=== PATIENT | female | born 1955 | race African-American/Black ===

== ENCOUNTER 2016-05-23 23:52 | Outpatient (CLI) | payer MEDICARE ==
[~2016-05-23] VITALS: Ht 167.6 cm; Wt 43.5 kg
[2016-05-23 21:46] LABS: APTT 24.9 SECONDS (22.8-39.4); INR 0.95 (0.85-1.17); PROTIME 12.5 SECONDS (11.6-15.0)
[2016-05-23 21:52] LABS: ALBUMIN 4.4 g/dL (3.4-5.0); ANION GAP 31.4 mmol/L (8-16); BILIRUBIN - TOTAL 0.46 mg/dL (0.2-1.3); CALCIUM 10.1 mg/dL (8.5-10.1); CARBON DIOXIDE 14.6 mmol/L (21.0-32.0); CREATININE - SERUM 1.5 mg/dL (0.6-1.3); PROTEIN - SERUM 10.3 g/dL (6.4-8.2)
[2016-05-23 21:57] LABS: BASOPHILS 0.6 % (0.0-2.0); EOSINOPHILS 0 % (0-7); HEMATOCRIT 40.3 % (36.0-48.0); HEMOGLOBIN 12.4 g/dL (12-16); IMMATURE GRANULOCYTES 0.2 % (0-5); LYMPHOCYTES 29.5 % (15-50); MCH 28.8 pg (26.0-34.0); MCHC 30.8 g/dL (31.0-37.0); MCV 93.5 fL (80.0-100.0); MEAN PLATELET VOLUME 11.9 fL (7.4-10.4); MONOCYTES 5.8 % (2-11); NEUTROPHILS 63.9 % (40-80); RBC 4.31 10x6/uL (4.00-5.40); RDW 13.8 % (11.5-14.5); WBC 8.2 10x3/uL (4.8-10.8)
[2016-05-23 22:00] LABS: PLATELET COUNT 203 10x3/uL (130-400)
[2016-05-23 22:05] LABS: KETONE - SERUM MODERATE mg/dL (NEGATIVE)
[2016-05-23 22:10] LABS: MAGNESIUM - SERUM 2.2 mg/dL (1.8-2.4)
[2016-05-23 23:54] LABS: APPEARANCE CLEAR (CLEAR); BILIRUBIN NEGATIVE (NEGATIVE); COLOR YELLOW (YELLOW); GLUCOSE 1000 mg/dL (NEGATIVE); KETONE LARGE mg/dL (NEGATIVE); LEUKOCYTE ESTERASE NEGATIVE (NEGATIVE); NITRITE NEGATIVE (NEGATIVE); PROTEIN TRACE mg/dL (NEGATIVE); SPECIFIC GRAVITY 1.015 (1.005-1.020); UROBILINOGEN NORMAL (NORMAL)
[2016-05-23 23:55] LABS: BACTERIA NONE SEEN /hpf (NONE SEEN); EPITHELIAL CELLS RARE /hpf (0-5); WHITE CELLS - URINE 0-5 /hpf (0-5)
[2016-05-24] VITALS: BP 104/64
--- NOTE | 2016-05-24 01:10 | NUR ---
RECIEVED REPORT ON PATIENT, AND INFORMED PATIENT WAS IN TRANSIT FROM ER BY RAMON.
--- NOTE | 2016-05-24 01:22 | NUR ---
PATIENT ARRIVED FROM ER VIA [facility] WITH HOSPITAL STAFF AND FAMILY.
[2016-05-24] MEDS ORDERED: LEVOTHYROXINE75 MCG PO (01:24)
[2016-05-24] MEDS ORDERED: GLIPIZIDE10 MG PO (01:24)
[2016-05-24] MEDS ORDERED: GLUCOPHAGE1000 MG PO (01:26)
[2016-05-24] MEDS ORDERED: KEPPRA500 MG PO (01:28)
--- NOTE | 2016-05-24 02:02 | NUR ---
PATIENT O2 TURNED DOWN TO 1.5 DUE TO SPO2 READING 100 ON LEFT THUMB. INCREASED CAP. FILL TIME TO 6SECONDS.
[2016-05-24 02:25] VITALS: BP 104/64; BMI 15.5
--- NOTE | 2016-05-24 02:37 | NUR ---
TOOK PATIENT OFF O2 AFTER TALKING WITH RESPIRATORY THERAPY AND SPO2 WAS 100%
--- NOTE | 2016-05-24 03:17 | NUR ---
FSBG WAS 247, 8UNITS OF HUMULIN 2 GIVEN TO RIGHT ARM
[2016-05-24 04:00] VITALS: BP 95/57
--- NOTE | 2016-05-24 05:07 | NUR ---
FSBG WAS 230, 8UNITS HUMULIN R GIVEN LEFT ARM
--- NOTE | 2016-05-24 07:00 | NUR ---
PT REC'D FROM [facility]. PT RESTING IN BED WITH SISTERS AT BEDSIDE. AAOX4. PIV TO L FOREARM SALINE LOCKED. NO S/SX OF INFECTION. BED LOW, CALL LIGHT IN REACH, DENIES NEEDS. CPOC.
[2016-05-24 08:25] VITALS: BP 105/60
--- NOTE | 2016-05-24 08:47 | NUR ---
PT AOX4 RESP EVEN AND NONLABORED PT DENIES NEEDS AT THIS TIME IV TO LEFT FOREARM PATENT AND INTACT. PT IN FOR DEHYDRATION AND NONCOMPLIANT DM. GIVING FLUIDS IV AND MONITORING FSBS. BED AT LOWEST SETTING CALL LIGHT WITHIN REACH WILL CONTINUE TO MONITOR
[2016-05-24 12:19] VITALS: Ht 167.6 cm; Wt 43.5 kg
--- NOTE | 2016-05-24 12:23 | NUR ---
CURRENT FSBS 107. NO INSULIN ADMINISTERED PER SS. PT RESTING IN BED WITH LUNCH TRAY IN ROOM. FAMILY AT BEDSIDE. BED LOW, CALL LIGHT IN REACH, DENIES NEEDS. CPOC.
[2016-05-24 12:32] VITALS: BP 103/61
--- NOTE | 2016-05-24 16:55 | NUR ---
8 UNITS OF INSULIN ADMINISTERED PER SS. FSBS 248. DINNER TRAY AT BEDSIDE. FAMILY IN ROOM. ORDERS FOR DC OBTAINED. BED LOW, CALL LIGHT IN REACH, DENIES NEEDS. CPOC.
[2016-05-24 17:31] VITALS: BP 106/67; BP 141/101
--- NOTE | 2016-05-24 18:00 | NUR ---
PIV TO L FOREARM DC'D WITH CATHETER INTACT. DRESSING APPLIED. ESCORTED OUT VIA WC. DC PAPERS IN HAND.
== END 2016-05-24 18:02 | disposition home or self-care (01) ==
LOC: OBSVTIME → D.MS 23:52 → D.OPS 23:52 → OBSVTIME 23:52 → D.ER 23:52 → D.MS 05-24 18:02 → D.OPS 05-24 18:02 → D.MS 05-24 18:02
PROVIDERS: Emergency Medicine; Physician Assistant Medical
DX: G45.9 Transient cerebral ischemic attack, unspecified (principal); Z91.14 Patient's other noncompliance with medication regimen; R47.81 Slurred speech; E11.65 Type 2 diabetes mellitus with hyperglycemia; Z86.73 Personal history of transient ischemic attack (TIA), and cerebral infarction without residual deficits; Z79.84 Long term (current) use of oral hypoglycemic drugs

== ENCOUNTER 2016-12-14 12:34 | Inpatient (IN) | payer MEDICARE ==
[2016-12-14] VITALS (18 sets, daily range): BP systolic 110–164; BP diastolic 58–79; BMI 14.7
[~2016-12-14 12:34] MED LIST: GLIPIZIDE10 MG PO; GLUCOPHAGE1000 MG PO; KEPPRA500 MG PO; LEVOTHYROXINE75 MCG PO
[2016-12-14 14:36] LABS: BASOPHILS 0.1 % (0-2); EOSINOPHILS 0 % (0-7); HEMATOCRIT 39.7 % (36.0-48.0); HEMOGLOBIN 11.8 g/dL (12-16); IMMATURE GRANULOCYTES 0.5 % (0-5); LYMPHOCYTES 6.9 % (15-50); MCH 28.6 pg (26.0-34.0); MCHC 29.7 g/dL (31.0-37.0); MCV 96.4 fL (80.0-100.0); MEAN PLATELET VOLUME 11.7 fL (7.4-10.4); MONOCYTES 1.1 % (2-11); NEUTROPHILS 91.4 % (40-80); PLATELET COUNT 166 10x3/uL (130-400); RBC 4.12 10x6/uL (4.00-5.40); RDW 13.4 % (11.5-14.5); WBC 16.2 10x3/uL (4.8-10.8)
--- NOTE | 2016-12-14 14:46 | NUR ---
RECD. REPORT FROM ER NURSE.
[2016-12-14 14:59] LABS: APPEARANCE HAZY (CLEAR); BILIRUBIN NEGATIVE (NEGATIVE); COLOR YELLOW (YELLOW); GLUCOSE 1000 mg/dL (NEGATIVE); KETONE LARGE mg/dL (NEGATIVE); NITRITE NEGATIVE (NEGATIVE); PROTEIN NEGATIVE (NEGATIVE); SPECIFIC GRAVITY 1.015 (1.005-1.020); UROBILINOGEN NORMAL (NORMAL)
[2016-12-14 15:07] LABS: UDS - AMPHET NEGATIVE QUAL (NEGATIVE); UDS - BARB NEGATIVE QUAL (NEGATIVE); UDS - BENZO NEGATIVE QUAL (NEGATIVE); UDS - COCAINE NEGATIVE QUAL (NEGATIVE); UDS - OPIATE NEGATIVE QUAL (NEGATIVE); UDS - PCP NEGATIVE QUAL (NEGATIVE); UDS - THC NEGATIVE QUAL (NEGATIVE)
[2016-12-14 15:09] LABS: BACTERIA FEW /hpf (NONE SEEN); EPITHELIAL CELLS 0-5 /hpf (0-5); GRANULAR CAST OCC /lpf (NONE SEEN); RED CELLS - URINE 25-50 /hpf (0-5)
--- NOTE | 2016-12-14 15:36 | NUR ---
ARRIVED FROM ER VIA STRETCHER AND TWO NURSES, TRANSFERED TO BED FROM STRETCHER WITH MIN. ASSIST. AWAKE AND ALERT, SPEECH IS SLURRED AND VERY DIFFICULT TO UNDERSTAND. PUPILS ARE PERRLA AT 2 TO 3MM. PATIENT IS CALM AND COOPERATIVE, PRIMARY ASSESSMENT PER FLOW SHEET. TEMP 97.5 PULSE 94 RHYTHM SR RESP. RATE 18 99 % O2 SAT ON ROOM AIR HT: 5'6" WT. 91.4 LBS. ABLE TO FOLLOW COMMANDS.
[2016-12-14] MEDS ORDERED: NOVOLOG100 U/M1 SC (16:12)
[2016-12-14] MEDS ORDERED: VITAMIN B-1250 MCG PO (16:13)
[2016-12-14] MEDS ORDERED: LEVEMIR100 U/M1 SC (16:15)
[2016-12-14] MEDS ORDERED: VITAMIN D2000 UNIT PO (16:17)
[2016-12-14] MEDS ORDERED: FERROUS SULFAT325 MG PO (16:17)
[2016-12-14 16:47] LABS: ALBUMIN 3.7 g/dL (3.4-5.0); ALKALINE PHOSPHATASE 166 U/L (46-116); ALT (SGPT) 19 U/L (10-68); BILIRUBIN - TOTAL 0.34 mg/dL (0.2-1.3); CALCIUM 8.7 mg/dL (8.5-10.1); CHLORIDE - SERUM 113 mmol/L (98-107); CREATINE KINASE 76 UL (21-215); CREATININE - SERUM 1.7 mg/dL (0.6-1.3); MAGNESIUM - SERUM 2.2 mg/dL (1.8-2.4); POTASSIUM - SERUM 3.8 mmol/L (3.5-5.1); PROTEIN - SERUM 8.5 g/dL (6.4-8.2); SODIUM 152 mmol/L (136-145); UREA NITROGEN 43 mg/dL (7-18); eGFR NON AFRICAN AMERICAN 32 mL/min (90-120)
[2016-12-14 16:55] LABS: CALC OSMOLALITY 330 mosm/kg (275-300); TROPONIN-I < 0.017 ng/mL (0.000-0.060)
[2016-12-14 16:58] LABS: CARBON DIOXIDE 9.1 mmol/L (21.0-32.0); GLUCOSE 430 mg/dL (74-106)
--- NOTE | 2016-12-14 19:30 | NUR ---
ASSESSMENT COMPLETE. S1S2. NSR SHOWING ON MONITOR. RR EQUAL AND UNLABORED. PT ABLE TO ANSWER QUESTIONS APPROPRIATELY. SPEECH SLIGHT SLURRED. BOWEL SOUNDS ACTIVE; DENIES TENDERNESS. RADIAL AND PEDAL PULSES PALPATED. PERRLA. PIV TO RFA; PATENT. PT ABLE TO MAKE POSITION CHANGES. AAO. ON ROOM AIR.
--- NOTE | 2016-12-14 19:40 | NUR ---
ASSISTED PT TO BED TOLENTINO; 250 ML CLEAR YELLOW UOP.
[2016-12-14 20:12] LABS: CALCIUM 8.8 mg/dL (8.5-10.1); CREATININE - SERUM 1.5 mg/dL (0.6-1.3); MAGNESIUM - SERUM 2.1 mg/dL (1.8-2.4); POTASSIUM - SERUM 3.6 mmol/L (3.5-5.1)
[2016-12-14 20:15] LABS: ANION GAP 23.5 mmol/L (8-16); CARBON DIOXIDE 17.1 mmol/L (21.0-32.0)
--- NOTE | 2016-12-14 21:15 | NUR ---
ASSISTED PT TO BEDPAN; 100ML UOP
--- NOTE | 2016-12-14 22:00 | NUR ---
NO FAMILY DURING VISITATION; X3 PHONE CALLS CHECKING ON PT; PASSWORD ESTABLISHED.
--- NOTE | 2016-12-14 23:10 | NUR ---
REASSESSMENT COMPLETE. NO ACUTE CHANGES FROM PREVIOUS ASSESSMENT. WILL CONTINUE TO MONITOR. Q1H FSBS. SEE FLOW SHEET FOR DETAILS.
[2016-12-15] VITALS (15 sets, daily range): BP systolic 112–138; BP diastolic 60–78; BMI 14.7
--- NOTE | 2016-12-15 01:38 | NUR ---
PT RESTING EYES CLOSED. VSS. NO DISTRESS NOTED. CALL LIGHT IN REACH. WILL CONTINUE TO MONITOR.
--- NOTE | 2016-12-15 03:05 | NUR ---
REASSESSMENT COMPLETE. NO ACUTE CHANGES FROM PREVIOUS ASSESSMENT. HYPOGLYCEMIA NOTED; MONITORING CLOSELY. WILL CONTINUE TO MONITOR.
[2016-12-15 03:38] LABS: BASOPHILS 0.1 % (0-2); EOSINOPHILS 0 % (0-7); HEMATOCRIT 32.9 % (36.0-48.0); HEMOGLOBIN 10.8 g/dL (12-16); IMMATURE GRANULOCYTES 0.2 % (0-5); MCH 28.5 pg (26.0-34.0); MCHC 32.8 g/dL (31.0-37.0); MCV 86.8 fL (80.0-100.0); MEAN PLATELET VOLUME 9.9 fL (7.4-10.4); MONOCYTES 7.8 % (2-11); NEUTROPHILS 81.9 % (40-80); PLATELET COUNT 177 10x3/uL (130-400); RBC 3.79 10x6/uL (4.00-5.40); RDW 12.7 % (11.5-14.5); WBC 13.1 10x3/uL (4.8-10.8)
[2016-12-15 03:46] LABS: CHOL - HDL RATIO 1.8 ratio (2.3-4.1); CHOLESTEROL, TOTAL 179 mg/dL (0-200); HDL CHOLESTEROL 102 mg/dL (32-96); LDL CHOLESTEROL 68 mg/dL (0-100); LDL-HDL RATIO 0.7 ratio (1.5-3.5); TRIGLYCERIDE 47 mg/dL (30-200)
[2016-12-15 03:48] LABS: KETONE - SERUM SMALL mg/dL (NEGATIVE)
[2016-12-15 04:02] LABS: HEMOGLOBIN A1C 13.1 % (4.8-6.0)
--- NOTE | 2016-12-15 05:29 | NUR ---
NO FAMILY OR VISITORS DURING VISITATION.
[2016-12-15 08:17] LABS: CREATININE - SERUM 1.2 mg/dL (0.6-1.3)
[2016-12-15 08:26] LABS: POTASSIUM - SERUM 4.2 mmol/L (3.5-5.1)
[2016-12-15 08:28] LABS: ANION GAP 17.5 mmol/L (8-16); CARBON DIOXIDE 22.7 mmol/L (21.0-32.0)
--- NOTE | 2016-12-15 08:35 | NUR ---
PT ALERT AND ORIENTED, BS 179 AT PRESENT. INSULIN GTT AT 0.5U/HR. CRITICAL LABS CL 118. PAGED DR KELLY. AWAITING CALL BACK.
--- NOTE | 2016-12-15 08:52 | NUR ---
RECEIVED CALL BACK FROM DR KELLY. REC'D NEW ORDERS.
--- NOTE | 2016-12-15 09:45 | NUR ---
PT OOB TO BSC WITH ASST. VOIDS 500CC.
[2016-12-15 12:17] LABS: ANION GAP 23.9 mmol/L (8-16); CALCIUM 8.7 mg/dL (8.5-10.1); CARBON DIOXIDE 16.5 mmol/L (21.0-32.0); MAGNESIUM - SERUM 1.9 mg/dL (1.8-2.4); POTASSIUM - SERUM 4.4 mmol/L (3.5-5.1)
--- NOTE | 2016-12-15 13:28 | NUR ---
DR KELLY HERE. SPOKE TO PT'S DAUGHTER AND PT AT BS.
--- NOTE | 2016-12-15 14:02 | NUR ---
ASSISTED TO BSC TO VOID. PT VOIDS W/O PROBLEMS.
--- NOTE | 2016-12-15 19:15 | NUR ---
ASSESSMENT COMPLETE. S1S2. NSR SHOWING ON MONITOR. RR EQUAL; UNLABORED. BOWEL SOUNDS ACTIVE X4; CONTINENT OF URINE. WEAKNESS NOTED TO EXTREMITIES. USES CALL LIGHT; AAO. PERRLA; RIGHT EYE DEVIATION. RADIAL AND PEDAL PULSES PALPATED. RIGHT FOREARM PIV; PATENT; NO SIGNS OF INFILTRATION. PT SITTING UP IN BED DOING CROSSWORD PUZZLE. DENIES PAIN. CLEAR COMMUNICATION NOTED.
--- NOTE | 2016-12-15 19:22 | NUR ---
SPOKE WITH DAUGHTER SHALONDA. QUESTIONS ANSWERED. NO CONCERNS VOICED AT THIS TIME.
--- NOTE | 2016-12-15 22:00 | NUR ---
NO VISITORS DURING VISITATION. VSS. NO DISTRESS NOTED. WILL CONTINUE TO MONITOR.
--- NOTE | 2016-12-15 23:08 | NUR ---
PATIENT ARRIVED FROM ICU VIA WHEELCHAIR, ALERT AND ORIENTED TO ROOM AND CALL LIGHT. DENIES NEEDS AT THIS TIME. CALL LIGHT IN REACH.
[2016-12-16 07:13] VITALS: BP 135/81
--- NOTE | 2016-12-16 07:21 | NUR ---
AM ROUNDING- RECEIVED REPORT FROM ERP ENGINEER NURSE NASREEN. PT IS CURRENTLY LAYING IN BED WITH EYES CLOSED RESTING. ON ROOM AIR. NO MONITOR. IV SEEN TO RIGHT FOREARM WITH 1/2 NS RUNNING AT 125CC. NO NEED AT THIS CURRENT TIME. WILL CONTINUE TO MONITOR AND CONTINUE WITH PLAN OF CARE.
[2016-12-16 09:32] LABS: BASOPHILS 0.1 % (0-2); EOSINOPHILS 0.8 % (0-7); HEMATOCRIT 34.8 % (36.0-48.0); HEMOGLOBIN 11.7 g/dL (12-16); IMMATURE GRANULOCYTES 0.1 % (0-5); LYMPHOCYTES 20.6 % (15-50); MCH 28.7 pg (26.0-34.0); MCHC 33.6 g/dL (31.0-37.0); MCV 85.3 fL (80.0-100.0); MEAN PLATELET VOLUME 11.4 fL (7.4-10.4); MONOCYTES 5.8 % (2-11); NEUTROPHILS 72.6 % (40-80); RBC 4.08 10x6/uL (4.00-5.40); RDW 12.9 % (11.5-14.5)
[2016-12-16 09:34] LABS: WBC 8.8 10x3/uL (4.8-10.8)
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
[2016-12-16 10:11] LABS: CALC OSMOLALITY 279 mosm/kg (275-300); CALCIUM 8.6 mg/dL (8.5-10.1); CARBON DIOXIDE 23.9 mmol/L (21.0-32.0); CHLORIDE - SERUM 107 mmol/L (98-107); CREATININE - SERUM 0.6 mg/dL (0.6-1.3); GLUCOSE 72 mg/dL (74-106); MAGNESIUM - SERUM 1.7 mg/dL (1.8-2.4); PHOSPHOROUS 2.4 mg/dL (2.5-4.9); POTASSIUM - SERUM 3.3 mmol/L (3.5-5.1); SODIUM 142 mmol/L (136-145); UREA NITROGEN 8 mg/dL (7-18); eGFR NON AFRICAN AMERICAN > 90 mL/min (90-120)
[2016-12-16 10:12] LABS: ALKALINE PHOSPHATASE 99 U/L (46-116); BILIRUBIN - TOTAL 0.29 mg/dL (0.2-1.3); KETONE - SERUM NEGATIVE (NEGATIVE)
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
--- NOTE | 2016-12-16 11:08 | NUR ---
SPOKE WITH RASHEL IN PHARMACY. ASKED RASHEL IF IT WAS COMPATIBLE TO RUN POTASSIUM PHOSPHATE IV AND MAGNESIUM IV ORDERED (ORDERED FOR SAME TIME), RASHEL STATES IT IS OKAY TO RUN TOGETHER AT THE Y SITE.
[2016-12-16 12:57] VITALS: BP 144/80
--- NOTE | 2016-12-16 14:30 | NUR ---
PTS LAST BAG OF MAGNESIUM INFUSED. POTASSIUM PHOSPHATE HUNG ORDERED. WILL AWAIT BAG OF POTASSIUM PHOSPHATE TO RUN AND THEN WILL D/C PT ORDERED. CESARIO WITH CASE MANAGEMENT STATES THAT PTS EMETERIOICE IS SUPPOSE TO COME GET HER. WILL CONTINUE TO MONITOR.
--- NOTE | 2016-12-16 16:59 | NUR ---
Patient Name: KARIS MEDINA Admission Status: ER Accout number: [id number] Admission Date: 12-14-2016 : 1955 Admission Diagnosis:DISORIENTATION, UNSPECIFIED Attending: SURESH KELLY Current LOS: 2 Anticipated DC Date: 12-16-2016 Planned Disposition: Home Primary Insurance: MEDICARE A & B Discharge Planning Comments: * Is the patient Alert and Oriented? Yes 0 * How many steps to enter\exit or inside your home? NONE 0 * PCP DR. BLACKWOOD 0 * Pharmacy [facility] 0 * Preadmission Environment Home with Family 0 * ADLs Partial Dependent 0 * Partial ADLs (Assistance needed) Bathing Medication Management 0 * Equipment Cane Rolling Walker 0 * Other Equipment NO MEDICAL EQUIPMENT PROVIDER PREFERENCE 0 * List name and contact numbers for known caregivers / representatives who currently or will assist patient after discharge: GLORIA FOLEY, 0 * Community resources currently utilized Private Duty Care 0 * Please name any agencies selected above. [facility] PAYS GLORIA FOR 18 HOURS PER WEEK PERSONAL CARE FOR PT. 0 * Additional services required to return to the preadmission environment? No 0 * Can the patient safely return to the preadmission environment? Yes 0 * Has this patient been hospitalized within the prior 30 days at any hospital? No 0 CM MET WITH PT IN ROOM TO DISCUSS DISCHARGE PLANNING AND NEEDS. PT REPORTS LIVING AT HOME INDEPENDENTLY WITH HER MOTHER. PT HAS CANE AND ROLLING WALKER WITH NO MEDICAL EQUIPMENT PROVIDER PREFERENCE. PT REPORTS HAVING HOME CARE, BUT CANNOT REMEMBER THE NAME OF HER HOME CARE AGENCY. CM DISCUSSED AVAILABILITY OF HOME HEALTH, REHAB SERVICES AND MEDICAL EQUIPMENT. PT DENIES DISCHARGE NEEDS, REPORTS HER NIECE WILL PICK HER UP FOR DISCHARGE HOME. CM CALLED PT'S KIMBERLEY KANG, , WHO DENIES DISCHARGE NEEDS, WOULD LIKE A REFERRAL FOR OUTPATIENT PHYSICAL THERAPY FOR PT; KIMBERLEY IS PT'S CAREGIVER, PAID FOR THROUGH [facility]. THEY DO NOT WANT HOME HEALTH. CM PAGED AND SPOKE TO DR. KELLY WHO DIRECTED CM TO HAVE THE PT CONTACT HER PCP FOR ANY THERAPY ORDERS. CM NOTIFIED PT IN ROOM AND K[facility]LEY VIA PHONE. PT AND KIMBERLEY DENIED FURTHER NEEDS. Centerless Grinder: Burak Moore
--- NOTE | 2016-12-16 17:44 | NUR ---
PT DID NOT WANT ANY MORE OF IV MEDICATION DUE TO AREA OF AREA OF ARM "BURNING". IV REMOVED TO RIGHT FOREARM. HEART MONITOR REMOVED AND RETURNED TO [facility] IN TELEMETRY. D/C INSTRUCTIONS EXPLAINED TO PT AND PTS FAMILY (DAUGHTER). D/C PAPERWORK SIGNED BY PT AND PLACED IN CHART. FAMILY IS GETTING PT READY TO D/C NOW.
--- NOTE | 2016-12-16 17:47 | NUR ---
PT D/C VIA WHEELCHAIR.
== END 2016-12-16 17:50 | disposition home or self-care (01) | DRG 637 ==
LOC: D.ER 12:34 → D.M2 14:11 → D.ICU 14:11 → D.M2 12-15 23:07
PROVIDERS: Emergency Medicine; ADMIT Family Medicine
DX: E11.10 Type 2 diabetes mellitus with ketoacidosis without coma (principal); G93.41 Metabolic encephalopathy; I69.954 Hemiplegia and hemiparesis following unspecified cerebrovascular disease affecting left non-dominant side; N17.9 Acute kidney failure, unspecified; N39.0 Urinary tract infection, site not specified; Z79.4 Long term (current) use of insulin; I69.919 Unspecified symptoms and signs involving cognitive functions following unspecified cerebrovascular disease; F01.50 Vascular dementia, unspecified severity, without behavioral disturbance, psychotic disturbance, mood disturbance, and anxiety; I69.998 Other sequelae following unspecified cerebrovascular disease; Z74.09 Other reduced mobility; E53.8 Deficiency of other specified B group vitamins; E55.9 Vitamin D deficiency, unspecified; D50.9 Iron deficiency anemia, unspecified; E03.9 Hypothyroidism, unspecified

== ENCOUNTER 2018-04-04 19:42 | Emergency (ER) | payer MEDICARE ==
[~2018-04-04] VITALS: Ht 167.6 cm; Wt 53.1 kg
[~2018-04-04 19:42] MED LIST changes: +FERROUS SULFAT325 MG PO; +LEVEMIR100 U/M1 SC; +NOVOLOG100 U/M1 SC; +VITAMIN B-1250 MCG PO; +VITAMIN D2000 UNIT PO
[2018-04-04 20:07] VITALS: Ht 167.6 cm; Wt 53.1 kg
[2018-04-04] MEDS ORDERED: DEPAKOTE250 MG PO (20:12)
[2018-04-04 20:35] LABS: BASOPHILS 0.4 % (0-2); EOSINOPHILS 0.6 % (0-7); HEMATOCRIT 35.4 % (36.0-48.0); HEMOGLOBIN 11.6 g/dL (12-16); LYMPHOCYTES 36.9 % (15-50); MCH 28.5 pg (26.0-34.0); MCHC 32.8 g/dL (31.0-37.0); MEAN PLATELET VOLUME 10.7 fL (7.4-10.4); MONOCYTES 9.9 % (2-11); NEUTROPHILS 52.2 % (40-80); PLATELET COUNT 152 10x3/uL (130-400); RBC 4.07 10x6/uL (4.00-5.40); RDW 13.4 % (11.5-14.5); WBC 4.9 10x3/uL (4.8-10.8)
[2018-04-04 20:42] LABS: PROTIME 12.7 SECONDS (11.6-15.0)
[2018-04-04 21:01] LABS: ALBUMIN 3.7 g/dL (3.4-5.0); ALKALINE PHOSPHATASE 118 U/L (46-116); ALT (SGPT) 15 U/L (10-68); CALC OSMOLALITY 283 mosm/kg (275-300); CALCIUM 9.2 mg/dL (8.5-10.1); CARBON DIOXIDE 28.7 mmol/L (21.0-32.0); CHLORIDE - SERUM 104 mmol/L (98-107); CKMB 1.1 U/L (0.0-3.6); CREATINE KINASE 261 UL (21-215); CREATININE - SERUM 0.9 mg/dL (0.6-1.3); GLUCOSE 119 mg/dL (74-106); MAGNESIUM - SERUM 1.7 mg/dL (1.8-2.4); POTASSIUM - SERUM 4.4 mmol/L (3.5-5.1); SODIUM 141 mmol/L (136-145); THYROID STIMULATING HORMONE 3.21 uIU/mL (0.36-3.74); TROPONIN-I < 0.017 ng/mL (0.000-0.060); UREA NITROGEN 17 mg/dL (7-18); VALPROIC ACID (DEPAKOTE) 90.7 ug/mL (50.0-100.0); eGFR NON AFRICAN AMERICAN 67 mL/min (90-120)
[2018-04-04 22:10] LABS: APPEARANCE CLEAR (CLEAR); COLOR YELLOW (YELLOW); GLUCOSE 1000 mg/dL (NEGATIVE); KETONE NEGATIVE (NEGATIVE); NITRITE NEGATIVE (NEGATIVE); PROTEIN NEGATIVE (NEGATIVE)
[2018-04-04 22:11] LABS: BILIRUBIN NEGATIVE (NEGATIVE); UROBILINOGEN NORMAL (NORMAL)
[2018-04-04 22:12] LABS: RED CELLS - URINE OCC /hpf (0-5); WHITE CELLS - URINE 0-5 /hpf (0-5)
[2018-04-04 22:18] LABS: UDS - AMPHET NEGATIVE QUAL (NEGATIVE); UDS - BARB NEGATIVE QUAL (NEGATIVE); UDS - BENZO NEGATIVE QUAL (NEGATIVE); UDS - COCAINE NEGATIVE QUAL (NEGATIVE); UDS - OPIATE NEGATIVE QUAL (NEGATIVE); UDS - PCP NEGATIVE QUAL (NEGATIVE); UDS - THC NEGATIVE QUAL (NEGATIVE)
[2018-04-04 23:03] VITALS: BP 158/74
== END 2018-04-04 23:02 | disposition home or self-care (01) ==
LOC: D.ER 19:42
PROVIDERS: Family Medicine
DX: R41.0 Disorientation, unspecified (principal); T16.2XXA Foreign body in left ear, initial encounter; X58.XXXA Exposure to other specified factors, initial encounter; Y93.89 Activity, other specified; Y92.019 Unspecified place in single-family (private) house as the place of occurrence of the external cause; E11.649 Type 2 diabetes mellitus with hypoglycemia without coma; Z86.73 Personal history of transient ischemic attack (TIA), and cerebral infarction without residual deficits

== ENCOUNTER 2019-04-21 13:04 | Emergency (ER) | payer MEDICARE ==
[~2019-04-21] VITALS: Ht 167.6 cm; Wt 78.2 kg
[~2019-04-21 13:04] MED LIST changes: +DEPAKOTE250 MG PO
[2019-04-21 13:23] VITALS: Ht 167.6 cm; Wt 78.2 kg
[2019-04-21 14:32] LABS: BASOPHILS 0.3 % (0-2); EOSINOPHILS 0.1 % (0-7); HEMATOCRIT 31.3 % (36.0-48.0); HEMOGLOBIN 10.1 g/dL (12-16); IMMATURE GRANULOCYTES 0.1 % (0-5); MCH 28.8 pg (26.0-34.0); MCHC 32.3 g/dL (31.0-37.0); MCV 89.2 fL (80.0-100.0); MEAN PLATELET VOLUME 10.5 fL (7.4-10.4); MONOCYTES 5.1 % (2-11); NEUTROPHILS 81.4 % (40-80); PLATELET COUNT 155 10x3/uL (130-400); RBC 3.51 10x6/uL (4.00-5.40); RDW 13.2 % (11.5-14.5); WBC 7.9 10x3/uL (4.8-10.8)
[2019-04-21 14:42] LABS: CALC OSMOLALITY 284 mosm/kg (275-300); CALCIUM 8.8 mg/dL (8.5-10.1); CHLORIDE - SERUM 100 mmol/L (98-107); CREATININE - SERUM 0.8 mg/dL (0.6-1.3); SODIUM 136 mmol/L (136-145); UREA NITROGEN 14 mg/dL (7-18); eGFR NON AFRICAN AMERICAN 76 mL/min (90-120)
[2019-04-21 14:43] LABS: INR 0.99 (0.85-1.17)
[2019-04-21 14:45] LABS: GLUCOSE 314 mg/dL (74-106)
[2019-04-21 15:00] LABS: ALBUMIN 3.4 g/dL (3.4-5.0); ALKALINE PHOSPHATASE 85 U/L (30-120); ALT (SGPT) 21 U/L (10-68); BILIRUBIN - TOTAL 0.29 mg/dL (0.2-1.3); C-REACTIVE PROTEIN 0.3 mg/dL (0.0-0.9); CKMB 0.6 U/L (0.0-3.6); CREATINE KINASE 134 UL (21-215); PRO BNP 145 pg/mL (0-125); PROTEIN - SERUM 8.5 g/dL (6.4-8.2); THYROID STIMULATING HORMONE 0.71 uIU/mL (0.36-3.74)
[2019-04-21 15:14] LABS: TROPONIN-I < 0.017 ng/mL (0.000-0.060)
[2019-04-21] MEDS ORDERED: ULTRAM50 MG PO (15:57)
[2019-04-21 16:47] VITALS: BP 162/76
== END 2019-04-21 16:38 | disposition home or self-care (01) ==
LOC: D.ER 13:04
PROVIDERS: Family Medicine
DX: S42.291A Other displaced fracture of upper end of right humerus, initial encounter for closed fracture (principal); Z86.73 Personal history of transient ischemic attack (TIA), and cerebral infarction without residual deficits; E11.9 Type 2 diabetes mellitus without complications; E07.9 Disorder of thyroid, unspecified; F03.90 Unspecified dementia, unspecified severity, without behavioral disturbance, psychotic disturbance, mood disturbance, and anxiety; Z79.4 Long term (current) use of insulin; W19.XXXA Unspecified fall, initial encounter; Y93.9 Activity, unspecified; Y92.9 Unspecified place or not applicable